=== PATIENT | male | born 1945 | race Caucasian/White ===

== ENCOUNTER 2023-09-08 12:34 | Outpatient (CLI) | payer MEDICARE, BC | END 2023-09-08 23:59 | disposition home or self-care (01) | LOC: RAD 12:34 | PROVIDERS: ATTEND Student in an Organized Health Care Education/Training Program | DX: Q44.6 Cystic disease of liver (principal); K76.0 Fatty (change of) liver, not elsewhere classified; K76.89 Other specified diseases of liver; K82.8 Other specified diseases of gallbladder | CPT/HCPCS: 74183; A9575 ==